=== PATIENT | male | born 1945 | race Caucasian/White ===

== ENCOUNTER 2017-02-04 17:30 | Inpatient (IN) | payer OTHER ==
--- NOTE | 2017-02-04 17:39 | EDPHY ---
H & P Time Seen by Provider: 02/04/17 17:38 HPI/ROS: CHIEF COMPLAINT: Chest pain HISTORY OF PRESENT ILLNESS: This patient is an anticoagulated diabetic 71 year old male with history if CAD and atrial fibrillation who presents to the Emergency Department complaining of intermittent chest pain with gradual onset over the past two months. When his pain first presented, it was mild and felt similar to a strained muscle. However, after traveling out to [place] on Monday, his pain has increased significantly in both severity and frequency. He experienced his worst exacerbation of chest pain five hours prior to arrival while walking. He states that his pain escalated to severity 10/10, causing him to double over and preventing him from continuing to walk. Upon arrival, he describes persistent chest pain localized to his upper chest and associated with mild dyspnea. He rates severity at 5/10. He denies pain or swelling to his legs. No dizziness, nausea, cough, or fever. Medical history also includes COPD. REVIEW OF SYSTEMS: Constitutional: No fever, no chills Eyes: No visual changes ENT: No sore throat Respiratory: +shortness of breath, no cough Cardiac: +chest pain Gastrointestinal: No nausea, no vomiting, no abdominal pain Genitourinary: No hematuria, no dysuria Musculoskeletal: No leg pain or swelling Skin: No rash Neurological: No headache, no numbness, no weakness Psychiatric: No depression Past Medical/Surgical History: 1.Diabetes (metformin) 2. CAD with prior CABG and stenting 3. Atrial fibrillation (Eliquis, Aspirin) - recent cardiac ablation 4. COPD Social History: Visiting from [place], has been in [place] for four days. Smoking Status: Never smoked Physical Exam: General Appearance: Alert, pleasant Eyes: Pupils equal and round, no conjunctival pallor or injection ENT, Mouth: Mucous membranes moist Neck: Normal inspection Respiratory: Lungs are clear to auscultation Cardiovascular: Regular rate and rhythm Gastrointestinal: Abdomen is soft and non- tender Neurological: A&O, nonfocal exam Skin: Warm and dry, no rash Extremities: Nontender Psychiatric: Mood and affect normal Constitutional: Initial Vital Signs Temperature (C) 36.8 C 02/04/17 17:33 Heart Rate 88 02/04/17 17:33 Respiratory Rate 18 02/04/17 17:33 Blood Pressure 198/105 H 02/04/17 17:33 O2 Sat (%) 93 02/04/17 17:33 O2 Delivery Mode Nasal Cannula O2 (L/minute) 2 Allergies/Adverse Reactions: No Known Allergies Allergy (Unverified 02/04/17 17:31) Home Medications: Medication Instructions Recorded ACYCLOVIR 400 mg PO BID 02/04/17 Apixaban [Eliquis] 5 mg PO BID 02/04/17 Aspirin EC [Aspirin EC 81 mg (*)] 81 mg PO DAILY 02/04/17 Isosorbide Dinitrate 15 mg PO DAILY 02/04/17 LISINOPRIL 5 mg PO DAILY 02/04/17 Metformin HCl [Metformin HCl ER] 1,500 mg PO DAILY 02/04/17 Metoprolol Succinate 25 mg PO DAILY 02/04/17 Nortriptyline HCl [Pamelor 50 mg 100 mg PO HS 02/04/17 (*)] Omeprazole 20 mg PO DAILY 02/04/17 Pravastatin Sodium 40 mg PO HS 02/04/17 Prednisolone Sod Phosphate 1 drop RTEYE BID 02/04/17 [Prednisolone Sodium Phosphate] Umeclidinium Brm/Vilanterol Tr 1 each IH DAILY 02/04/17 [Anoro Ellipta 62.5-25 Mcg INH] levOFLOXACIN [Levofloxacin] 750 mg PO DAILY #5 tablet 02/06/17 Medical Decision Making - Diagnostics EKG Interpretation: EKG interpreted by me reveals atrial flutter, rate 86; IVCD; no ST/T segment changes. 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 Upon arrival, he is hypertensive at 198/105. He is resting comfortably at time of exam. EKG reveals atrial flutter but no ischemic changes. Will proceed with cardiac workup with labs, including troponin, and chest x-ray. Labs obtained and are unremarkable. Troponin is negative. Chest x-ray reviewed and is negative for acute process. NTG given with partial relief. I discussed lab and x-ray results with the patient as well as my recommendation that he be admitted to the hospital for further cardiac evaluation and monitoring. He is agreeable to this. 1932: Consultation with Dr. Bev Vivar, hospitalist, who accepts admission to PCU. Differential Diagnosis: The differential diagnosis for the patient's chest pain included but was not limited to myocardial ischemia, pulmonary embolus, chest wall pain, pleural inflammation, and pulmonary infectious causes. - Data Points Laboratory Results: Laboratory Results 02/05/17 07:20 02/05/17 07:20 Microbiology Results: MICROBIOLOGY 02/05/17 14:50 Blood Blood Culture - Preliminary 02/05/17 14:43 Blood Blood Culture - Preliminary Medications Given: Discontinued Medications Acetaminophen (Tylenol) 650 mg PO Q4HRS PRN PRN Reason: Pain, Mild/Fever, Can Take PO Stop: 08/03/17 20:32 Last Admin: 02/05/17 13:21 Dose: 650 mg Apixaban (Eliquis) 5 mg PO BID [facility] Stop: 08/03/17 22:29 Last Admin: 02/06/17 09:05 Dose: 5 mg Aspirin Buffered (Aspirin Ec) 81 mg PO DAILY [facility] Stop: 08/04/17 08:59 Last Admin: 02/06/17 09:05 Dose: 81 mg Levofloxacin/Dextrose (Levaquin 750 Mg (Premix)) 150 mls @ 100 mls/hr IV DAILY [facility] PRN Reason: Protocol Stop: 03/07/17 12:59 Last Admin: 02/06/17 09:03 Dose: 150 mls Insulin Human Lispro (Humalog Lispro) 0 unit SC TIDMEAL [facility] PRN Reason: Protocol Stop: 08/04/17 07:59 Last Admin: 02/06/17 13:43 Dose: Not Given Isosorbide Dinitrate (Isosorbide Dinitrate) 15 mg PO DAILY [facility] Stop: 08/04/17 08:59 Last Admin: 02/06/17 09:04 Dose: 15 mg Ketorolac Tromethamine (Toradol) 15 mg IVP ONCE ONE Stop: 02/05/17 09:46 Last Admin: 02/05/17 10:05 Dose: 15 mg Lisinopril (Zestril) 5 mg PO DAILY [facility] Stop: 08/04/17 08:59 Last Admin: 02/06/17 09:04 Dose: 5 mg Metoprolol Succinate (Toprol Xl) 25 mg PO DAILY [facility] Stop: 08/04/17 08:59 Last Admin: 02/06/17 09:04 Dose: 25 mg Miscellaneous Medication (Umeclidinium Brm/Vilanterol Tr [Anoro Ellipta 62.5-25 Mcg Inh]) 1 each IH DAILY [facility] Stop: 08/04/17 08:59 Last Admin: 02/06/17 08:20 Dose: Not Given Morphine Sulfate (Morphine) 1 - 2 mg IVP Q1HR PRN PRN Reason: Pain, Severe Unable to Take PO Stop: 02/14/17 20:32 Last Admin: 02/05/17 01:20 Dose: 2 mg Nitroglycerin (Nitrostat) 0.4 mg SL EDNOW ONE Stop: 02/04/17 20:02 Last Admin: 02/04/17 19:55 Dose: 0.4 mg Nortriptyline HCl (Pamelor) 100 mg PO HS [facility] Stop: 08/04/17 20:59 Last Admin: 02/05/17 21:44 Dose: 100 mg Oxycodone HCl (Oxycodone Ir) 5 - 10 mg PO Q3HRS PRN PRN Reason: Pain, Severe Able to Take PO Stop: 02/14/17 20:32 Last Admin: 02/05/17 22:07 Dose: 10 mg Pantoprazole Sodium (Protonix) 40 mg PO DAILY [facility] Stop: 08/04/17 08:59 Last Admin: 02/06/17 09:04 Dose: 40 mg Pravastatin Sodium (Pravachol) 40 mg PO HS [facility] Stop: 08/04/17 20:59 Last Admin: 02/05/17 21:44 Dose: 40 mg Prednisolone Acetate (Pred Forte 1%) 1 drops RTEYE BID [facility] Stop: 08/04/17 08:59 Last Admin: 02/06/17 09:06 Dose: 1 drop Departure - Departure Disposition: [facility] Inpatient Acute Clinical Impression: Chest pain Qualifiers: Chest pain type: unspecified Qualified Code(s): R07.9 - Chest pain, unspecified Condition: Fair Report Scribed for: Gina Victoria Report Scribed by: Zoey Magana Date of Report: 02/04/17 Time of Report: 17:38 Physician Review and Approval Statement: 02/04/17 17:38 Portions of this note were transcribed by a medical/surgery registered nurse. I personally performed a history, physical exam, medical decision making, and confirmed accuracy of information the transcribed note.
--- NOTE | 2017-02-04 17:50 | CPEKG ---
Heart Rate: 78 RR Interval: 769 QRSD Interval: 112 QT Interval: 376 QTC Interval: 429 QRS [place]: -7 T Wave [place]: 79 EKG Severity - ABNORMAL ECG - EKG Impression: ATRIAL FLUTTER, A-RATE 254 EKG Impression: VENTRICULAR PREMATURE COMPLEX EKG Impression: NONSPECIFIC INTRAVENTRICULAR CONDUCTION DELAY EKG Impression: INFERIOR INFARCT, AGE INDETERMINATE Electronically Signed By: Gina Victoria 04-Feb-2017 21:04:59
[2017-02-04 18:34] LABS: % IMMATURE GRANULYOCYTES 0.3 % (0.0-1.1); ABSOLUTE IMMATURE GRANULOCYTES 0.02 10^3/uL (0.00-0.10); ADD DIFF? NO; ADD MORPH? NO; ADD SCAN? NO; ATYPICAL LYMPHOCYTE FLAG 0 (0-99); FRAGMENT RBC FLAG 0 (0-99); HEMATOCRIT 42.1 % (40.0-51.0); HEMOGLOBIN 13.7 g/dL (13.7-17.5); LEFT SHIFT FLG 0 (0-99); LIPEMIA HEMOLYSIS FLAG 80 (0-99); MEAN CELL HEMOGLOBIN 29.3 pg (27.9-34.1); MEAN CELL HEMOGLOBIN CONCENTR. 32.5 g/dL (32.4-36.7); MEAN PLATELET VOLUME 11.8 fL (8.7-11.7); PLATELET CLUMPS FLAG 0 (0-99); PLATELET COUNT 148 10^3/uL (150-400); RED BLOOD CELL COUNT 4.68 10^6/uL (4.40-6.38); RED CELL DISTRIBUTION WIDTH 14.7 % (11.5-15.2)
[2017-02-04] MEDS ORDERED: NITROGLYCERIN 0.4 MG BTL SL PRN ×2 (18:34→19:56)
[2017-02-04 18:53] LABS: ANION GAP 13 mEq/L (8-16); CALCIUM 9.3 mg/dL (8.5-10.4); CARBON DIOXIDE 25 mEq/l (22-31); CHLORIDE 103 mEq/L (97-110); CREATININE 0.9 mg/dL (0.7-1.3); GLOMERULAR FILTRATION RATE > 60; GLUCOSE 118 mg/dL (70-100); POTASSIUM 4.7 mEq/L (3.5-5.2); SODIUM 141 mEq/L (134-144)
[2017-02-04 19:03] LABS: TROPONIN I < 0.012 ng/mL (0-0.034)
[2017-02-04] MEDS ORDERED: NITROGLYCERIN 0.4 MG BTL SL ONE ×2 (19:53→20:01)
[2017-02-04] MEDS ORDERED: ACETAMINOPHEN 325 MG TAB PO PRN (20:33)
[2017-02-04] MEDS ORDERED: ONDANSETRON DISINTEGRATING 4 MG TAB PO PRN (20:33)
[2017-02-04] MEDS ORDERED: ONDANSETRON 4 MG/2 ML VIAL IVP PRN (20:33)
[2017-02-04] MEDS ORDERED: hydrALAZINE 20 MG/ML VIAL IVP PRN (20:35)
[2017-02-04] MEDS ORDERED: D50W 25 GM/50 ML SYR IVP PRN (22:28)
[2017-02-04] MEDS ORDERED: IPRATROPIUM/ALBUTEROL 3 ML DEYVIAL IH PRN (22:37)
--- NOTE | 2017-02-04 23:21 | GHP ---
[f rep st] HISTORY AND PHYSICAL DATE OF ADMISSION: 02/04/2017 CHIEF COMPLAINT: Chest pain. HISTORY: This is a 71-year-old man, with past medical history that includes coronary artery disease , status post multiple stents and [place] in 1994, as well as diabetes, AFib, and ulcerative colitis, who presents with worsening chest pain over the last several months. The patient is visiting his daugh sugar, who goes to college here in [place], but is originally from [place]. He notes for the last s everal months he has been having left-sided chest pain that he initially thought was musculoskeletal . 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 Since arriving here, t he pain has become much worse. Today, it has been severe, up to a 9 to 10/10. It seems to be relat ed to any kind of movement, but not exactly positional. It is not similar to the pain he had with h is [place]. He has not had any other signs or symptoms of illness, including fevers or chills, no cough. He has not had any recent swelling in his legs. He believes his last angiogram was at least 3-5 y ears ago and he has not had a stress test since that time. PAST MEDICAL HISTORY: Includes: 1. Coronary artery disease, status post [place] in 1994, and since then he has had at least 2-3 stents p laced. 2. Diabetes type 2. 3. Atrial fibrillation, status post ablation. 4. Hypertension. 5. Hyperlipidemia. 6. Ulcerative colitis, previously on biologics. 7. COPD. PAST SURGICAL HISTORY: CABG. FAMILY HISTORY: Father with coronary artery disease, but not until his late 80s. SOCIAL HISTORY: Patient is . He has a daughter here in [place]. He is a prior smoker, maritza t about 5 years ago, has approximately a [id number] smoking history. REVIEW OF SYSTEMS: A 10-point review of systems obtained and negative, except as per HPI. MEDICATIONS: Include: 1. Lisinopril. 2. Metformin. 3. Acyclovir. 4. Omeprazole. 5. Nortriptyline. 6. Isosorbide dinitrate. 7. Pravastatin. 8. Metoprolol. 9. Prednisolone eye drops. 10. Eliquis. 11. Aspirin. ALLERGIES: No known drug allergies. PHYSICAL EXAMINATION: VITAL SIGNS: BP 179/114, heart rate 86, respiratory rate 20, O2 sat is 93% o n 2 L. Temperature is 36.5. GENERAL APPEARANCE: This is an overweight male. He is awak e and alert. He is in no acute distress. EYES: Anicteric. HEENT: Oropharynx clear. CARDIOVASCULAR: Distant heart sounds. No clear murmurs rubs or gallops appreciated. Rate is regul ar. PULMONARY: Decreased breath sounds throughout, no wheezes, rales, rhonchi appreciated. ABDOME N: Obese, soft, nontender. EXTREMITIES: No clubbing, cyanosis, or edema. SKIN: Warm, dry, well perfused. NEUROLOGIC/PSYCHIATRIC: Oriented and appropriate. CLINICAL DATA: CBC is unremarkable. Chemistry notable for glucose of 118. Troponin is less than 0 .012. Chest x-ray, personally reviewed and interpreted, shows sequela of prior CABG, but no CHF or infiltrate. EKG shows atrial flutter, VPC, no clear ischemic changes. ASSESSMENT/PLAN: This is a 71-year-old male, past medical history of coronary artery disease with p rior coronary artery bypass graft and stent placements, presenting with several months of worsening chest pain. 1. Chest pain. This is concerning for unstable angina given history of increasing pain that is pre sent now with minimal exertion. He does have significant cardiac history, including coronary artery bypass graft and multiple stents. Initial workup thus far with EKG and troponin is unremarkable. Plan will be to monitor overnight on telemetry with serial EKGs and troponins. We will obtain an ec hocardiogram in the morning to look for wall motion abnormality, as well as any evidence of pericard itis given positional component to his pain. We will ask for cardiology consultation in considerati on further ischemic workup with either angiogram or stress test likely tomorrow. 2. Coronary artery disease, as per above. He will be continued on statin, aspirin, and beta blocke r per his home routine. He is also on isosorbide dinitrate, though notes he is having worsening glenda st pain, as above. 3. Atrial fibrillation. Currently, noted to be in flutter with a rate in the 250s. He has had a h istory of ablation. We will continue beta gabriele and Eliquis. 4. Diabetes. We will hold the metformin and start sliding scale insulin for possible angiogram dur ing this hospitalization. 5. Hypertension/uncontrolled. We will continue his home medications with the addition of p.r.n. hy dralazine overnight for blood pressures greater than 170. Again, we will obtain echocardiogram in t he morning. 6. Chronic obstructive pulmonary disease, does not have evidence of acute exacerbation. He does no te that he has been more short of breath since arriving in [place], which he attributes to the alti tude. We will start DuoNebs overnight. DISPOSITION: Observation status. Patient will likely need less than a 48-hour stay for evaluation and management of above. Patient is new to my care. Care plan reviewed with the ER physician, including plans for rule out o f acute coronary syndrome. /[id number]/MODL
[2017-02-05] MEDS: APIXABAN 5 MG TAB PO SCH ×3 (00:02→21:44)
[2017-02-05] MEDS ORDERED: ENOXAPARIN 40 MG/0.4 ML SYR SC SCH (09:00)
[2017-02-05] MEDS: INSULIN LISPRO 100 UNIT/ML SC SCH ×3 (09:01→16:42)
[2017-02-05] MEDS: ISOSORBIDE DINITRATE 10 MG TAB PO SCH (09:16)
[2017-02-05] MEDS: PANTOPRAZOLE SODIUM 40 MG TAB PO SCH (09:17)
[2017-02-05] MEDS: METOPROLOL SUCCINATE XR 25 MG TAB PO SCH (09:17)
[2017-02-05] MEDS: LISINOPRIL 5 MG TAB PO SCH (09:17)
[2017-02-05] MEDS: ASPIRIN EC 81 MG TAB PO SCH (09:18)
[2017-02-05] MEDS: prednisoLONE ACET 1% 5 ML OPHT.BTL RTEYE SCH ×2 (09:19→21:46)
[2017-02-05 09:20] LABS: % IMMATURE GRANULYOCYTES 0.4 % (0.0-1.1); ABSOLUTE IMMATURE GRANULOCYTES 0.02 10^3/uL (0.00-0.10); ADD DIFF? NO; ADD MORPH? NO; ADD SCAN? NO; ATYPICAL LYMPHOCYTE FLAG 0 (0-99); FRAGMENT RBC FLAG 0 (0-99); HEMOGLOBIN 13.5 g/dL (13.7-17.5); LEFT SHIFT FLG 0 (0-99); LIPEMIA HEMOLYSIS FLAG 90 (0-99); MEAN CELL HEMOGLOBIN 32.1 pg (27.9-34.1); MEAN CELL HEMOGLOBIN CONCENTR. 34.6 g/dL (32.4-36.7); MEAN CELL VOLUME 92.9 fL (81.5-99.8); MEAN PLATELET VOLUME 13.3 fL (8.7-11.7); PLATELET CLUMPS FLAG 0 (0-99); PLATELET COUNT 113 10^3/uL (150-400)
[2017-02-05] MEDS: Umeclidinium Brm/Vilanterol Tr [Anoro Ellipta 62.5-25 Mcg Inh] 1 E IH SCH (09:20)
--- NOTE | 2017-02-05 09:39 | PDCARCONS ---
Cardiology Consult Reason for Consult: Chest pain Chief Complaint: chest pain Requesting Physician: Bev Buck MD History of Present Illness: Very pleasant 71-year-old male from [facility] . He is visiting [place]. He has had ongoing chest pain for the last 2 and half weeks. It has been constant for the past 5 days to the point where he could not sleep over the last 3 days. He describes it as a pain in his left axillary area which is worse with inspiration . He has also had some tenderness in the axillary area on the left side. He states that this pain is very different from his pain that he had with his myocardial infarction and at other times when stents were placed which was more of heaviness in the parasternal area. There is no change in the pain with either posture, diet or exercise. States that for the past 5 days, he has not had any improvement in the chest discomfort. He reports no fever cough or shortness of breath. Does have COPD at baseline. He does not have any orthopnea, PND. There is no history of syncope. History Information - Allergies/Home Medication List Allergies/Adverse Reactions: No Known Allergies Allergy (Unverified 02/04/17 17:31) Home Medications: ACYCLOVIR [ACYCLOVIR] 400 mg PO BID 02/04/17 [Last Taken 02/04/17 08:00] Apixaban [Eliquis] 5 mg PO BID 02/04/17 [Last Taken 02/04/17 08:00] Aspirin EC [Aspirin EC 81 mg (*)] 81 mg PO DAILY 02/04/17 [Last Taken 02/04/17] Isosorbide Dinitrate 15 mg PO DAILY 02/04/17 [Last Taken 02/04/17] LISINOPRIL [LISINOPRIL] 5 mg PO DAILY 02/04/17 [Last Taken Unknown] Metformin HCl [Metformin HCl ER] 1,500 mg PO DAILY 02/04/17 [Last Taken 02/04/17 ] Metoprolol Succinate [Metoprolol Succinate] 25 mg PO DAILY 02/04/17 [Last Taken 02/04/17] Nortriptyline HCl [Pamelor 50 mg (*)] 100 mg PO HS 02/04/17 [Last Taken 02/02/17 ] Omeprazole [Omeprazole] 20 mg PO DAILY 02/04/17 [Last Taken 02/04/17] Pravastatin Sodium 40 mg PO HS 02/04/17 [Last Taken 02/02/17] Prednisolone Sod Phosphate [Prednisolone Sodium Phosphate] 1 drop RTEYE BID [Last Taken Unknown] Umeclidinium Brm/Vilanterol Tr [Anoro Ellipta 62.5-25 Mcg INH] 1 each IH DAILY 02/04/17 [Last Taken Unknown] I have personally reviewed and updated: family history, medical history, social history, surgical history - Past Medical History atrial fibrillation, coronary artery disease, COPD, diabetes type 2, hypertension, hyperlipidemia, myocardial infarction - Surgical History Reports: coronary bypass surgery, cholecystectomy - Social History Smoking Status: Former smoker Tobacco Use: Cigarettes Physical Exam Temp Pulse Resp BP Pulse Ox 36.6 C 87 16 160/95 H 93 02/05/17 08:00 02/05/17 09:17 02/05/17 08:00 02/05/17 09:02/05/17 08:00 O2 (L/minute) 2 Constitutional: no apparent distress, appears nourished Eyes: PERRL, EOMI Ears, Nose, Mouth, Throat: moist mucous membranes, hearing normal Cardiovascular: regular rate and rhythym, no murmur, rub, or gallop Respiratory: no respiratory distress, no rales or rhonchi Gastrointestinal: normoactive bowel sounds, distension Skin: warm, normal color Neurologic: AAOx3 Psychiatric: interacting appropriately, not anxious ( Does have point tenderness in the left axillary area which is the same as the pain that he is describing) Lab and Imaging 02/05/17 07:20 02/04/17 18:29 WBC 4.87 10^3/uL (3.80-9.50) 02/05/17 07:20 RBC 4.20 10^6/uL (4.40-6.38) L 02/05/17 07:20 Hgb 13.5 g/dL (13.7-17.5) L 02/05/17 07:20 Hct 39.0 % (40.0-51.0) L 02/05/17 07:20 MCV 92.9 fL (81.5-99.8) 02/05/17 07:20 MCH 32.1 pg (27.9-34.1) 02/05/17 07:20 MCHC 34.6 g/dL (32.4-36.7) 02/05/17 07:20 RDW 15.0 % (11.5-15.2) 02/05/17 07:20 Plt Count 113 10^3/uL (150-400) L 02/05/17 07:20 MPV 13.3 fL (8.7-11.7) H 02/05/17 07:20 Neut % (Auto) 64.1 % (39.3-74.2) 02/05/17 07:20 Lymph % (Auto) 15.8 % (15.0-45.0) 02/05/17 07:20 [place] % (Auto) 18.7 % (4.5-13.0) H 02/05/17 07:20 Eos % (Auto) 0.6 % (0.6-7.6) 02/05/17 07:20 Baso % (Auto) 0.4 % (0.3-1.7) 02/05/17 07:20 Nucleat RBC Rel Count 0.0 % (0.0-0.2) 02/05/17 07:20 Absolute Neuts (auto) 3.12 10^3/uL (1.70-6.50) 02/05/17 07:20 Absolute Lymphs (auto) 0.77 10^3/uL (1.00-3.00) L 02/05/17 07:20 Absolute Monos (auto) 0.91 10^3/uL (0.30-0.80) H 02/05/17 07:20 Absolute Eos (auto) 0.03 10^3/uL (0.03-0.40) 02/05/17 07:20 Absolute Basos (auto) 0.02 10^3/uL (0.02-0.10) 02/05/17 07:20 Absolute Nucleated RBC 0.00 10^3/uL (0-0.01) 02/05/17 07:20 Immature Gran % 0.4 % (0.0-1.1) 02/05/17 07:20 Immature Gran # 0.02 10^3/uL (0.00-0.10) 02/05/17 07:20 Sodium 141 mEq/L (134-144) 02/04/17 18:29 Potassium 4.7 mEq/L (3.5-5.2) 02/04/17 18:29 Chloride 103 mEq/L (97-110) 02/04/17 18:29 Carbon Dioxide 25 mEq/l (22-31) 02/04/17 18:29 Anion Gap 13 mEq/L (8-16) 02/04/17 18:29 BUN 13 mg/dL (7-23) 02/04/17 18:29 Creatinine 0.9 mg/dL (0.7-1.3) 02/04/17 18:29 Estimated GFR > 60 02/04/17 18:29 Glucose 118 mg/dL (70-100) H 02/04/17 18: Calcium 9.3 mg/dL (8.5-10.4) 02/04/17 18: Troponin I < 0.012 ng/mL (0-0.034) 02/05/17 00:05 Visualized and Interpreted EKG results: Yes A/P Assessment: 1. Coronary artery disease, status post CABG in 1994, status post 2-3 stents placed about 3-4 years ago. Details not available to me at this time. 2. Atrial fibrillation, status post ablation procedure, currently in coarse atrial fibrillation on last EKG and appears to be in atrial tachycardia with regular ventricular response currently. 3. Diabetes mellitus 4. Hypertension 5. Hyperlipidemia 6. COPD, ex-smoker 7. Ulcerative colitis Plan: 1. Differential diagnosis of his pain includes thromboembolic pulmonary disease , musculoskeletal pain or coronary artery disease. Pain is atypical for ACS and moreover is different from his cardiac pain. Has ruled out for myocardial infarction after 5 days of having had constant chest discomfort. EKG is not suggestive of acute coronary event. Plan to obtain ECHO to assess for pericarditis. Have recommended to the hospitalist team that he have a CT scan to rule out pulmonary thromboembolic disease. Morphine is not helping his pain. Given Toradol for control of chest discomfort . Plan myocardial perfusion stress test in the morning. 2.Atrial fibrillation status post ablation procedure. In coarse atrial fibrillation and atrial tachycardia. Continue Eliquis. Thank you for consultation. Will follow with you.
[2017-02-05] MEDS ORDERED: KETOROLAC 15 MG/1 ML SDV IVP ONE (09:45)
[2017-02-05 09:49] LABS: ANION GAP 10 mEq/L (8-16); CALCIUM 8.8 mg/dL (8.5-10.4); CARBON DIOXIDE 24 mEq/l (22-31); CHLORIDE 104 mEq/L (97-110); CREATININE 0.8 mg/dL (0.7-1.3); GLOMERULAR FILTRATION RATE > 60; GLUCOSE 177 mg/dL (70-100); POTASSIUM 4.1 mEq/L (3.5-5.2); SODIUM 138 mEq/L (134-144)
[2017-02-05 09:54] LABS: TROPONIN I < 0.012 ng/mL (0-0.034)
[2017-02-05] MEDS ORDERED: IOPAMIDOL (ISOVUE-300) 100 ML BTL ONE (09:58)
[2017-02-05] MEDS ORDERED: IOPAMIDOL (ISOVUE 370) 100 ML BTL IV ONE (10:17)
--- NOTE | 2017-02-05 13:19 | CPEKG ---
Heart Rate: 87 RR Interval: 690 QRSD Interval: 110 QT Interval: 353 QTC Interval: 425 QRS [place]: -2 EKG Severity - ABNORMAL ECG - EKG Impression: A-FLUTTER W/ PREDOM 3:1 AV BLOCK, A-RATE 263 EKG Impression: NONSPECIFIC INTRAVENTRICULAR CONDUCTION DELAY EKG Impression: PROBABLE INFERIOR INFARCT, AGE INDETERMINATE EKG Impression: PREMATURE VENTRICULAR CONTRACTION Electronically Signed By: Denita Lu 05-Feb-2017 19:33:09
[2017-02-05] MEDS: oxyCODONE IR 5 MG TAB PO PRN ×2 (13:21→22:07)
--- NOTE | 2017-02-05 15:23 | ECHO ---
[id number] + + [address] : : [place] [address] : : [phone] + + Adult Echocardiographic Report + ----+ :Name: DIAMANTECATHERINE STOCK PStudy Date: 02/05/2017 12:15 PM BP: 143/91 m mHg : : Hospital Admission Number: [id number] : :: 1945 Gender: Male Height: 71 i n : :Age: 71 yrs Race: WH Weight: 242 lb : :Reason For Study: chest pain : : BSA: 2.3 met ers2: :History: CAD, CABG, STENT, DE : + ----+ MMode/2D Measurements \T\ Calculations IVSd: 1.1 cm RVDd: 2.7 cm FS: 23.5 % Ao root diam: LVPWd: 1.1 cm LVIDd: 5.6 cm EDV(Teich): 3.9 cm LVIDs: 4.3 cm 151.3 ml ESV(Teich): 81.2 ml EF(Teich): 46.4 % LVLd ap4: 9.5 cm SV(MOD-sp4): EDV(MOD-sp4): 63.0 ml 156.0 ml LVLs ap4: 8.1 cm ESV(MOD-sp4): 93.0 ml EF(MOD-sp4): 40.4 % Normal Measurement Values: + + :LVIDd (3.5-5.7cm) IVSd (0.6-1.1cm) LVPWd (0.6-1.1cm) Aortic Root (2.0-3.7cm)Left Atrium (1.5-4.0cm): :LV Vol(d) (76-115ml) LV Vol(s) (29-48ml) Ejec Fraction (50-65%)PV Cale (0.6- 1.2m/s) TV Cale (0.4-1.0m/s) : :MV E Cale (0.8-1.0m/s)MV A Cale (0.3-1.0m/s)LVOT Cale (0.7-1.2m/s) Asc Ao Cale ( 0.9-1.8m/s) : + + Doppler Measurements \T\ Calculations MV E max cale: Ao V2 max: LV V1 max: PA V2 max: 69.6 cm/sec 109.4 cm/sec 76.1 cm/sec 107.6 cm/sec MV A max cale: Ao max P.8 mmHgLV V1 max PG: PA max P.6 mmHg 79.0 cm/sec 2.3 mmHg MV E/A: 0.88 Left Ventricle The left ventricle is borderline dilated. There is mild concentric left ventricular hypertrophy. Left ventricular systolic function is mildly reduced. Ejection Fraction = 40-45%. Inferior, basal inferolateral and basal inferoseptal monreal are hypokinetic. Right Ventricle The right ventricle is normal in size and function. Atria The left atrial size is normal. Right atrial size is normal. Mitral Valve The mitral valve is normal in structure and function. There is no mitral valve stenosis. There is no mitral regurgitation noted. Tricuspid Valve The tricuspid valve is normal in structure and function. There is no tricuspid stenosis. No tricuspid regurgitation. Aortic Valve The aortic valve is trileaflet. There is no aortic stenosis. There is no aortic insufficiency. Pulmonic Valve The pulmonic valve is not well visualized. Great Vessels The aortic root is normal size. Pericardium/Pleural There is no pericardial effusion. There is a fat pad seen. Conclusion A two-dimensional transthoracic echocardiogram with M-mode and Doppler was performed. The left ventricle is borderline dilated. There is mild concentric left ventricular hypertrophy. Left ventricular systolic function is mildly reduced. Ejection Fraction = 40-45%. Inferior, basal inferolateral and basal inferoseptal monreal are hypokinetic. Normal appearing valvular structures. No significant Doppler abnormalities. Final Reading Physician: JaceElina Braxton signed on 02/05/2017 03:22 PM Ordering Physician: Bev Buck Performed By: Haylie Gallardo
--- NOTE | 2017-02-05 16:43 | HOSPPROG ---
Hospitalist Progress Note Assessment/Plan: 71 [place]/complaints of chest pain that has been increasing over the last several months and has become severe in the last week # chest pain: atypical and present on and off x 3 months, but bad for 1 week and continued overnight. Cardiology consulted, w/u negative for ACS thus far. ? if related to pna as next. Plan for stress test in am. # pna: on personal review of cta there is evidence of left lower lobe pna, started on levofloxacin, blood cultures ordered prior to abx. Not septic appearing. # acute exacerbation of copd: mild exacerbation in setting of above, treating with gabi # acute hypoxic respiratory failure: sounds as if he has required chronic o2 previously but has been off for some time, he is saturating in the low 90s on 2L of oxygen currently. Related to pna/copd exacerbation as above. # a fib: hx of ablation, noted to be in coarse a fib on personal review of ecg, continued on eliquis and metoprolol # chronic medical issues: DM, HTN, HLD, UC--continue op medications # dispo: IP status, will need > 48 hours stay for eval/mgmt of above Care plan reviewed with cardiology as above. Subjective: no significant overnight events, continues to have chest pain today , still sob Objective: Vital Signs Temp Pulse Resp BP Pulse Ox 36.6 C 85 16 164/100 H 93 02/05/17 16:00 02/05/17 16:30 02/05/17 16:00 02/05/17 16:30 02/05/17 16:00 Laboratory Results 02/05/17 07:20 02/05/17 07:20 02/04/17 02/05/17 02/06/17 05:59 05:59 05:59 Intake Total 200 Balance 200 awake alert anicteric op clear rrr no mrg cta with dec bs and left rales obese soft nt nd no cce warm dry well perfused oriented appropriate - Time Spent With Patient Time Spent with Patient: greater than 35 minutes Time Spent with Patient: Greater than 35 minutes spent on this patients care, greater than 50% of time spent counseling, educating, and coordinating care regarding the above mentioned plan. ICD10 Worksheet Patient Problems: Problems Problem Status Onset Chest pain Acute
[2017-02-05] MEDS ORDERED: PRAVASTATIN SODIUM 40 MG TAB PO SCH (21:00)
[2017-02-05] MEDS ORDERED: NORTRIPTYLINE HCL 50 MG CAP PO SCH (21:00)
[2017-02-06] MEDS: Umeclidinium Brm/Vilanterol Tr [Anoro Ellipta 62.5-25 Mcg Inh] 1 E IH SCH (08:20)
[2017-02-06] MEDS: PANTOPRAZOLE SODIUM 40 MG TAB PO SCH (09:04)
[2017-02-06] MEDS: ISOSORBIDE DINITRATE 10 MG TAB PO SCH (09:04)
[2017-02-06] MEDS: LISINOPRIL 5 MG TAB PO SCH (09:04)
[2017-02-06] MEDS: METOPROLOL SUCCINATE XR 25 MG TAB PO SCH (09:04)
[2017-02-06] MEDS: INSULIN LISPRO 100 UNIT/ML SC SCH ×2 (09:05→13:43)
[2017-02-06] MEDS: ASPIRIN EC 81 MG TAB PO SCH (09:05)
[2017-02-06] MEDS: APIXABAN 5 MG TAB PO SCH (09:05)
[2017-02-06] MEDS: prednisoLONE ACET 1% 5 ML OPHT.BTL RTEYE SCH (09:06)
[2017-02-06] MEDS ORDERED: REGADENOSON 0.4 MG/5 ML SYR IVP ONE (10:36)
--- NOTE | 2017-02-06 14:49 | PDCARST ---
CAR Stress Test Results Type of Stress Test: Lexiscan stress test Indication: cp Description of Procedure: After informed consent was obtained, pt was established to ECG, blood pressure, HR and oximetry monitoring. STRESS EKG AND HEMODYNAMIC DATA. Resting heart rate: 90 BPM. Resting ECG: AF CVR. Resting blood pressure: 138/88 mmHg. O2 saturation at rest: 93%. Peak heart rate: BPM. Peak blood pressure: 140/84 mmHg. Arrhythmias: None. Symptoms: The patient experienced no typical symptoms of angina during stress or recovery. Stress/Infusion ECG: No change in rhythm with no significant ST/T wave changes. Stress/infusion O2 saturation: 98% Impression: Uneventful Lexiscan infusion. Conclusion: Await nuclear images.
--- NOTE | 2017-02-06 14:53 | PDCARPN ---
Cardiology Progress Note Chief Complaint: cp Assessment/Plan: Assessment: 71-y/o M with PMH CAD/CABG 1994, PCIs about 3-4 years ago, AF s/p ablation but currently in AF on OAC and rate control, DM, htn, COPD, UC, p/w 2.5 weeks of cp. Noted in L axillary region worsened with inspiration with associated TTP. Severe worsening that lead to admission. #. cp. Somewhat atypical but pt carries multiple RFs proceeded to MPI with no defects continue medical management #. AF. On rate control and anticoagulation. #. likely ICM: EF 40-45% on echo pt is on appropriate med management follow up with cardiology in [place] Plan: OK to d/c from cardiology perspective. 02/06/17 14:50 Subjective: No cp or dyspnea currently. Feels the morphine and Toradol finally are what helped. Objective: Vital Signs (8 Hrs) Temp Pulse Resp BP Pulse Ox 02/06/17 12:00 97.9 F 86 16 131/84 H 93 02/06/17 07:59 88 17 151/89 H 92 Intake/Output (24 Hrs) 02/05/17 02/06/17 02/07/17 05:59 05:59 05:59 Intake Total 1280 Balance 1280 Intake: Oral (ml) 1100 IV Intake (ml) 30 IV Infused (ml) 150 levOFLOXACIN 750 MG/ 150 DEXTROSE 150 ml @ 100 mls /hr IV DAILY JOAQUIM Rx#: [id number] Other: Number of Voids Toilet 1 Number of Stools Toilet 1 Result Diagrams: 02/05/17 07:20 02/05/17 07:20 - Physical Exam Constitutional: no apparent distress Eyes: anicteric sclera Cardiovascular: irregularly irregular ICD10 Worksheet Patient Problems: Problems Problem Status Onset Chest pain Acute
[2017-02-06 15:18] VITALS: BP 119/72; PULSE 87; RESP 20; TEMP 98.3; O2SAT 90
--- NOTE | 2017-02-06 15:31 | PDDCSUM ---
Discharge Summary Discharge Summary: Dates of service 02/04-02/06/17 Consultations: cardiology Procedures performed: nuc stress test, echo, chest CTA Hospital course by problem: # chest pain: atypical and present on and off x 3 months, but bad for 1 week and continued overnight. Cardiology consulted, w/u negative for ACS and pain improving overnight. They are not recommending further IP evaluation, but patient to f/u with cardiology after dc. # pna: on personal review of cta there is evidence of left lower lobe pna, started on levofloxacin and will continue for 7 day course, blood cultures w/ ngtd. # acute exacerbation of copd: mild exacerbation in setting of above, treated with duonebs and improved this am # acute hypoxic respiratory failure: sounds as if he has required chronic o2 previously but has been off for some time, in setting of pna was initially requiring o2 but has improved to 90% on RA at time of dc # chronic systolic heart failure: EF noted to be 30% on echo, patient does not recall what his EF was in the past but knows it was slightly low, he does not appear to be decompensated currently and as above, echo and stress test reassuring. Will f/u with home planning rn # a fib: hx of ablation, noted to be in coarse a fib on personal review of ecg, continued on eliquis and metoprolol # chronic medical issues: DM, HTN, HLD, UC--continue op medications DC home F/u with usual planning rn after dc > 35 minutes spent in dc of patient more than half in coordination of care as well as counseling patient regarding test results and f/u care plan
== END 2017-02-06 16:54 | disposition home or self-care (01) | DRG 313 ==
LOC: INTOOBSV 19:32 → F2W 20:42 → OBSVTOIN 02-05 16:45
PROVIDERS: ADMIT Internal Medicine; ATTEND Internal Medicine
DX: R07.89 Other chest pain (principal); J44.0 Chronic obstructive pulmonary disease with (acute) lower respiratory infection; J18.9 Pneumonia, unspecified organism; J44.1 Chronic obstructive pulmonary disease with (acute) exacerbation; J96.01 Acute respiratory failure with hypoxia; I11.0 Hypertensive heart disease with heart failure; I50.22 Chronic systolic (congestive) heart failure; I25.10 Atherosclerotic heart disease of native coronary artery without angina pectoris; I48.91 Unspecified atrial fibrillation; K51.90 Ulcerative colitis, unspecified, without complications; E11.9 Type 2 diabetes mellitus without complications; E78.5 Hyperlipidemia, unspecified; I25.2 Old myocardial infarction; Z95.1 Presence of aortocoronary bypass graft; Z95.5 Presence of coronary angioplasty implant and graft
CPT/HCPCS: A9500; G0378; J1885; J1956; J2785; Q9967